=== PATIENT | male | born 1945 | race Caucasian/White ===

== ENCOUNTER → 2016-12-01 | Outpatient (CLI) | payer MEDICARE ==
[~2016-12-01] MED LIST: ATEN-100 PO; PRED20 PO; VENTAER INH
--- NOTE | 2016-12-01 15:04 | TR ---
Date Performed: 12/01/2016 Time Performed: 12:30:46 DOCTOR: Robert Anthony DRUG LIST: CLINICAL HISTORY: PALPITATIONS REASON FOR TEST: REASON FOR ENDING: OBSERVATION: CONCLUSION: ABHAY PROTOCOL. NO CP. TEST STOPPED AFTER REACHING GOAL HR SECONDARY TO SOB AND LEG FATIGUEMaximum AU=786 % Max HR Achieved=87.0% Maximum AT=251/72 Total Exercise Time=6:22 COMMENTS: Patient exercised using the Abhay protocol. No electrocardiographic changes were seen to suggest ischemia. Hemodynamic response to exercise was normal. No significant arrhythmia was prese nt.
== END ==
LOC: HCAV 11:57
PROVIDERS: ATTEND Family Medicine
DX: R00.2 Palpitations (principal)
CPT/HCPCS: 93017